=== PATIENT | male | born 1985 | race Caucasian/White ===

== ENCOUNTER 2017-05-26 01:29 | Emergency (ER) | payer OTHER ==
[2017-05-26] MEDS: IBUPROFEN 200 MG TAB PO (03:21)
== END 2017-05-26 06:20 | disposition home or self-care (01) ==
LOC: FTE 01:29
DX: S99.912A Unspecified injury of left ankle, initial encounter (principal); W01.0XXA Fall on same level from slipping, tripping and stumbling without subsequent striking against object, initial encounter; Y92.9 Unspecified place or not applicable
CPT/HCPCS: 29515; 73610; 73630-LT; 99283-25